=== PATIENT | female | born 1970 | race Caucasian/White ===

== ENCOUNTER 2023-09-17 05:57 | Day surgery (SDC) | payer OTHER ==
[2023-09-17 06:18] VITALS: RESP 18; O2SAT 98
[2023-09-17] MEDS ORDERED: Versed 2 MG/2 ML Injection ONE (07:32)
[2023-09-17] MEDS ORDERED: SUBLIMAZE 100 MCG/2 ML ONE (07:32)
[2023-09-17] MEDS ORDERED: DIPRIVAN 200 MG/20 ML IV ONE ×3 (07:32→08:07)
[2023-09-17] MEDS ORDERED: Xylocaine-Mpf 2% 5 Ml Vial ONE (07:32)
[2023-09-17] MEDS ORDERED: Lactated Ringers 1,000 ML IV ONE (08:03)
[2023-09-17 08:48] VITALS: TEMP 97.5
[2023-09-17 09:27] VITALS: BP 125/73; PULSE 81
--- NOTE | 2023-09-17 13:57 | OP ---
SURGERY DATE: 09/17/2023 SURGERY TIME: 736 PREOPERATIVE DIAGNOSIS: 1. SCREENING COLONOSCOPY. POSTOPERATIVE DIAGNOSIS: 1. COLON POLYPS X 12. PROCEDURE: 1. Colonoscopy. SURGEON: Dr. Dave Farr. ANESTHESIA: MAC by Kevin Watkins CRNA. SPECIMENS: 1 hot snare polypectomy from sigmoid colon at 25 cm scope depth and 11 other polyps all from either the sigmoid colon or rectum. ESTIMATED BLOOD LOSS: Minimal. DESCRIPTION OF PROCEDURE: After informed written consent was obtained, the patient was taken to the endoscopy suite. She underwent monitored anesthesia and digital rectal exam showed normal sphincter tone and no internal lesions. The scope was inserted in the rectum and sequentially the entire colonic mucosa was traversed. The level of the cecum was reached and verified with direct visualization of the ileocecal valve. Upon withdrawal, careful mucosal inspection revealed large pedunculated polyp in the distal sigmoid colon which was grasped with a snare, cauterized at the base, and retrieved with a trap. In that same region, there was a smaller sigmoid polyp which was grasped with the forceps, cauterized, and removed in its entirety. There were several other polyps, 4 of which were in the distal sigmoid colon which were all removed and sent in a separate container together. Then, there were numerous other rectal polyps which were all small, grasped with the forceps, cauterized, and sent in the same specimen container. Prior to withdrawal, retroflexion showed no internal lesions. The scope was removed. The patient was transferred to the recovery room in good condition and advised to follow-up in a week for pathology results.
[2023-09-18] MEDS: Lactated Ringers 1,000 ML IV SCH (08:41)
== END 2023-09-17 09:30 | disposition home or self-care (01) ==
LOC: SDC 05:57
PROVIDERS: ATTEND Family Medicine
DX: Z12.11 Encounter for screening for malignant neoplasm of colon (principal); D12.5 Benign neoplasm of sigmoid colon
CPT/HCPCS: 93005; J2250; J2704; J3010